=== PATIENT | female | born 1980 | race Caucasian/White ===

== ENCOUNTER 2018-05-30 17:59 | Emergency (ER) | payer MEDICAID ==
[~2018-05-30] VITALS: Ht 157.5 cm; Wt 78.0 kg
[2018-05-30 18:10] VITALS: BP 146/83
[2018-05-30] MEDS ORDERED: KETOROLAC 60 MG/2 ML VIAL IM ONE (18:45)
[2018-05-30 19:05] VITALS: BP 121/74
== END 2018-05-30 19:00 | disposition home or self-care (01) ==
LOC: MED 17:59
DX: R07.89 Other chest pain (principal); E11.9 Type 2 diabetes mellitus without complications; E03.0 Congenital hypothyroidism with diffuse goiter; R11.0 Nausea
CPT/HCPCS: 93005; 96372; 99283; J1885

== ENCOUNTER 2023-01-18 14:29 | Emergency (ER) | payer MEDICAID ==
[~2023-01-18] VITALS: Ht 154.9 cm; Wt 80.1 kg
[2023-01-18 14:43] VITALS: BP 161/89; PULSE 101; RESP 20; TEMP 96.6; O2SAT 98
--- NOTE | 2023-01-18 14:58 | NUR ---
ambulated to the restroom for urine sample
[2023-01-18 16:32] LABS: BASOPHILS # (AUTO) 0.1 K/uL (0.00-0.22); BASOPHILS % (AUTO) 0.9 % (0.0-2.0); EOSINOPHILS # (AUTO) 0.2 K/uL (0-0.4); EOSINOPHILS % (AUTO) 2.8 % (0.0-4.0); HEMATOCRIT 27.1 % (36-48); HEMOGLOBIN 8.6 g/dL (12.0-16.0); LYMPHOCYTES # (AUTO) 2.3 K/uL (2.5-16.5); LYMPHOCYTES % (AUTO) 27.4 % (20.5-51.1); MEAN CORPUSCULAR HEMOGLOBIN 18 pg (27-31); MEAN CORPUSCULAR HGB CONC 32 g/dL (33-37); MEAN CORPUSCULAR VOLUME 56.2 fL (80-94); MONOCYTES # (AUTO) 0.5 K/uL (0.8-1.0); MONOCYTES % (AUTO) 5.8 % (1.7-9.3); NEUTROPHILS # (AUTO) 5.3 K/uL (1.8-7.7); NEUTROPHILS % (AUTO) 63.1 % (42.2-75.2); PLATELET COUNT (AUTO) 304 K/uL (140-450); RED BLOOD CELL COUNT(AUTO) 4.81 MIL/uL (4.20-5.40); RED CELL DISTRIBUTION WIDTH 19.2 % (11.6-13.7); WHITE BLOOD COUNT (AUTO) 8.4 K/uL (4.8-10.8)
--- NOTE | 2023-01-18 16:37 | NUR ---
Patient was taken to CT.
--- NOTE | 2023-01-18 16:41 | NUR ---
Patient returned from CT.
[2023-01-18 16:52] LABS: ALBUMIN 3.4 g/dL (3.4-5.0); ANION GAP 10.8 (8-16); CARBON DIOXIDE 27.9 mmol/L (21-32); CREATININE 0.8 mg/dL (0.6-1.3); POTASSIUM 3.7 mmol/L (3.5-5.1); TOTAL BILIRUBIN 0.4 mg/dL (0.0-1.0)
--- NOTE | 2023-01-18 16:53 | NUR ---
43 y/o female bib daughter for c/o RUQ abdominal pain x 15 days. Patient reports continous burning pain. Denies taking any medication for pain. Last BM 01/18/23. Denies any nausea, vomiting or fever. Denies any new foods or sick contacts. Denies any dysuria or foul smelling urine. MEDICAL HISTORY: DM (non-compliant) NKDA
[2023-01-18] MEDS ORDERED: KETOROLAC 15 MG/ML VIAL IM ONE (17:00)
[2023-01-18] MEDS ORDERED: ACETAMINOPHEN 325 MG TAB PO ONE (17:00)
[2023-01-18] MEDS ORDERED: BEN10 PO (17:34)
[2023-01-18] MEDS ORDERED: IBUP-2213 PO (17:34)
[2023-01-18 17:44] VITALS: BP 145/81; PULSE 88; RESP 20; TEMP 97; O2SAT 97
--- NOTE | 2023-01-18 17:44 | NUR ---
Patient's pain is decreasing. Patient discharged with v/s stable. Written and verbal after care instructions given. Patient alert, oriented and verbalized understanding of instructions. Ambulatory with steady gait. All questions addressed prior to discharge. ID band removed. Patient advised to follow up with PMD. Rx of Ibuprofen and Bentyl given. Opportunity to ask questions provided and answered.
--- NOTE | 2023-01-18 17:45 | NUR ---
The patient's care was reviewed and supervised by ELMIRA SEAY RN.
== END 2023-01-18 17:44 | disposition home or self-care (01) ==
LOC: MED 14:29
DX: N83.202 Unspecified ovarian cyst, left side (principal); N83.201 Unspecified ovarian cyst, right side; E11.65 Type 2 diabetes mellitus with hyperglycemia; Z79.4 Long term (current) use of insulin; Z79.899 Other long term (current) drug therapy
CPT/HCPCS: 36415; 74176; 80053; 81002; 81025; 83690; 85025; 96372; 99285; J1885

== ENCOUNTER 2023-09-30 17:21 | Emergency (ER) | payer MEDICAID, OTHER ==
[~2023-09-30] VITALS: Ht 154.9 cm; Wt 74.8 kg
[~2023-09-30 17:21] MED LIST: BEN10 PO; IBUP-2213 PO
[2023-09-30 17:43] VITALS: BP 159/102; PULSE 94; RESP 18; TEMP 98.3; O2SAT 100
[2023-09-30 19:00] VITALS: BP 142/73; PULSE 88; RESP 18; O2SAT 98
[2023-09-30] MEDS: fentaNYL citrate 0.05 MG/ML VIAL IVP ONE (19:09)
== END 2023-09-30 19:46 | disposition home or self-care (01) ==
LOC: MED 17:21
DX: N81.4 Uterovaginal prolapse, unspecified (principal); Z79.899 Other long term (current) drug therapy
CPT/HCPCS: 81025; 96374; 99284; J3010